=== PATIENT | female | born 1935 | race Caucasian/White ===

== ENCOUNTER → 2017-10-03 | Outpatient (CLI) | payer MEDICARE, OTHER | LOC: M.CT 10-01 11:00 | DX: M17.11 Unilateral primary osteoarthritis, right knee (principal); Z96.651 Presence of right artificial knee joint ==

== ENCOUNTER 2019-03-14 13:35 | Emergency (ER) | payer MEDICARE, OTHER ==
[~2019-03-14] VITALS: Ht 157.5 cm; Wt 88.5 kg
[2019-03-14] MEDS ORDERED: CHLORTHALIDONE25 MG PO (13:44)
[2019-03-14] MEDS ORDERED: PROZAC20 MG PO (13:45)
[2019-03-14] MEDS ORDERED: KLOR-CON 1010 MEQ PO (13:45)
[2019-03-14] MEDS ORDERED: NORVASC5 M1 PO (13:45)
[2019-03-14] MEDS ORDERED: TRAZODONE HCL50 MG PO (13:45)
[2019-03-14] MEDS ORDERED: PROBIOTIC1 EAC4 PO (13:46)
[2019-03-14] MEDS ORDERED: UNICOMPLEX M TA1 TA1 PO (13:46)
[2019-03-14] MEDS ORDERED: OMEGA-31000 M1 PO (13:46)
[2019-03-14] MEDS ORDERED: TYLENOL325 MG PO (13:46)
[2019-03-14] MEDS ORDERED: TRAMADOL 50 MG50 MG PO (13:46)
[2019-03-14] MEDS ORDERED: NORCO 5-325 TA1 EAC1 PO (14:48)
[2019-03-14 15:13] VITALS: BP 125/70
== END 2019-03-14 15:13 | disposition home or self-care (01) ==
LOC: M.ERS 13:35
DX: M25.562 Pain in left knee (principal); I10 Essential (primary) hypertension; G47.00 Insomnia, unspecified; F41.9 Anxiety disorder, unspecified; F32.9 Major depressive disorder, single episode, unspecified; Z88.0 Allergy status to penicillin; Z88.8 Allergy status to other drugs, medicaments and biological substances; Z88.2 Allergy status to sulfonamides

== ENCOUNTER → 2019-05-01 | Outpatient (CLI) | payer MEDICARE, OTHER ==
[~2019-05-01] MED LIST: CHLORTHALIDONE25 MG PO; KLOR-CON 1010 MEQ PO; NORCO 5-325 TA1 EAC1 PO; NORVASC5 M1 PO; OMEGA-31000 M1 PO; PROBIOTIC1 EAC4 PO; PROZAC20 MG PO; TRAMADOL 50 MG50 MG PO; TRAZODONE HCL50 MG PO; TYLENOL325 MG PO; UNICOMPLEX M TA1 TA1 PO
== END ==
LOC: M.WC 09:46
DX: L89.312 Pressure ulcer of right buttock, stage 2 (principal); L89.322 Pressure ulcer of left buttock, stage 2; B02.9 Zoster without complications; E78.00 Pure hypercholesterolemia, unspecified; G89.29 Other chronic pain; I10 Essential (primary) hypertension; M19.90 Unspecified osteoarthritis, unspecified site; F41.9 Anxiety disorder, unspecified; Z90.710 Acquired absence of both cervix and uterus

== ENCOUNTER → 2019-05-08 | Outpatient (CLI) | payer MEDICARE, OTHER | LOC: M.WC 09:46 | DX: L89.312 Pressure ulcer of right buttock, stage 2 (principal); L89.322 Pressure ulcer of left buttock, stage 2; S31.821D Laceration without foreign body of left buttock, subsequent encounter; S31.811D Laceration without foreign body of right buttock, subsequent encounter; B02.9 Zoster without complications; E78.00 Pure hypercholesterolemia, unspecified; G89.29 Other chronic pain; I10 Essential (primary) hypertension; M19.90 Unspecified osteoarthritis, unspecified site; F41.9 Anxiety disorder, unspecified; X58.XXXD Exposure to other specified factors, subsequent encounter ==

== ENCOUNTER → 2019-05-16 | Outpatient (CLI) | payer MEDICARE, OTHER | LOC: M.WC 04:50 | DX: L89.322 Pressure ulcer of left buttock, stage 2 (principal); L89.312 Pressure ulcer of right buttock, stage 2; B02.9 Zoster without complications; E78.00 Pure hypercholesterolemia, unspecified; G89.29 Other chronic pain; I10 Essential (primary) hypertension; R54 Age-related physical debility; M19.90 Unspecified osteoarthritis, unspecified site; F41.9 Anxiety disorder, unspecified ==

== ENCOUNTER → 2019-05-22 | Outpatient (CLI) | payer MEDICARE, OTHER | LOC: M.WC 04:56 | DX: L89.312 Pressure ulcer of right buttock, stage 2 (principal); L89.322 Pressure ulcer of left buttock, stage 2; B02.9 Zoster without complications; E78.00 Pure hypercholesterolemia, unspecified; G89.29 Other chronic pain; I10 Essential (primary) hypertension; R54 Age-related physical debility; M19.90 Unspecified osteoarthritis, unspecified site; F41.9 Anxiety disorder, unspecified ==

== ENCOUNTER → 2019-06-12 | Outpatient (CLI) | payer MEDICARE, OTHER | LOC: M.WC 06:04 | DX: L89.151 Pressure ulcer of sacral region, stage 1 (principal); L89.312 Pressure ulcer of right buttock, stage 2; L98.492 Non-pressure chronic ulcer of skin of other sites with fat layer exposed; E78.00 Pure hypercholesterolemia, unspecified; G89.29 Other chronic pain; I10 Essential (primary) hypertension; R54 Age-related physical debility; M19.90 Unspecified osteoarthritis, unspecified site; F41.9 Anxiety disorder, unspecified ==

== ENCOUNTER → 2019-06-19 | Outpatient (CLI) | payer MEDICARE, OTHER | LOC: M.WC 04:32 | DX: L89.322 Pressure ulcer of left buttock, stage 2 (principal); G89.29 Other chronic pain; I10 Essential (primary) hypertension; M54.9 Dorsalgia, unspecified; M19.90 Unspecified osteoarthritis, unspecified site; E78.00 Pure hypercholesterolemia, unspecified; R54 Age-related physical debility; F41.9 Anxiety disorder, unspecified ==

== ENCOUNTER → 2019-06-27 | Outpatient (CLI) | payer MEDICARE, OTHER | LOC: M.WC 06-26 10:00 | DX: L89.322 Pressure ulcer of left buttock, stage 2 (principal); L89.312 Pressure ulcer of right buttock, stage 2; E78.00 Pure hypercholesterolemia, unspecified; G89.29 Other chronic pain; I10 Essential (primary) hypertension; R54 Age-related physical debility; M19.90 Unspecified osteoarthritis, unspecified site; F41.9 Anxiety disorder, unspecified ==

== ENCOUNTER → 2019-10-09 | Outpatient (CLI) | payer MEDICARE, OTHER | LOC: M.WC 10:00 | DX: L89.321 Pressure ulcer of left buttock, stage 1 (principal); L89.311 Pressure ulcer of right buttock, stage 1; E78.00 Pure hypercholesterolemia, unspecified; G89.29 Other chronic pain; I10 Essential (primary) hypertension; M19.90 Unspecified osteoarthritis, unspecified site; F41.9 Anxiety disorder, unspecified; Z90.710 Acquired absence of both cervix and uterus ==

== ENCOUNTER → 2019-10-30 | Outpatient (CLI) | payer MEDICARE, OTHER | LOC: M.RAD 11:06 | DX: J84.10 Pulmonary fibrosis, unspecified (principal); J06.9 Acute upper respiratory infection, unspecified ==

== ENCOUNTER → 2020-01-09 | Outpatient (CLI) | payer MEDICARE, OTHER | LOC: M.WC 05:32 | DX: L89.312 Pressure ulcer of right buttock, stage 2 (principal); L89.322 Pressure ulcer of left buttock, stage 2; M19.90 Unspecified osteoarthritis, unspecified site; E78.00 Pure hypercholesterolemia, unspecified; I10 Essential (primary) hypertension; F41.9 Anxiety disorder, unspecified; Z90.710 Acquired absence of both cervix and uterus ==

== ENCOUNTER → 2020-01-16 | Outpatient (CLI) | payer MEDICARE, OTHER | LOC: M.WC 03:53 | DX: L89.312 Pressure ulcer of right buttock, stage 2 (principal); M19.90 Unspecified osteoarthritis, unspecified site; G89.29 Other chronic pain; M54.9 Dorsalgia, unspecified; I10 Essential (primary) hypertension; F41.9 Anxiety disorder, unspecified ==

== ENCOUNTER → 2020-01-23 | Outpatient (CLI) | payer MEDICARE, OTHER | LOC: M.WC 05:09 | DX: L89.312 Pressure ulcer of right buttock, stage 2 (principal); L89.322 Pressure ulcer of left buttock, stage 2; E78.00 Pure hypercholesterolemia, unspecified; I10 Essential (primary) hypertension; G89.29 Other chronic pain; M19.90 Unspecified osteoarthritis, unspecified site; F41.9 Anxiety disorder, unspecified ==

== ENCOUNTER → 2020-03-04 | Outpatient (CLI) | payer MEDICARE, OTHER | LOC: M.WC 02:25 | PROVIDERS: ATTEND Family Medicine | DX: L89.312 Pressure ulcer of right buttock, stage 2 (principal); L89.322 Pressure ulcer of left buttock, stage 2; L30.9 Dermatitis, unspecified; E78.00 Pure hypercholesterolemia, unspecified; G89.29 Other chronic pain; I10 Essential (primary) hypertension; M19.90 Unspecified osteoarthritis, unspecified site; F41.9 Anxiety disorder, unspecified; Z90.710 Acquired absence of both cervix and uterus ==

== ENCOUNTER → 2020-03-11 | Outpatient (CLI) | payer MEDICARE, OTHER | LOC: M.WC 04:21 | PROVIDERS: ATTEND Family Medicine | DX: L89.312 Pressure ulcer of right buttock, stage 2 (principal); L89.322 Pressure ulcer of left buttock, stage 2; L30.9 Dermatitis, unspecified; E78.00 Pure hypercholesterolemia, unspecified; G89.29 Other chronic pain; I10 Essential (primary) hypertension; M19.90 Unspecified osteoarthritis, unspecified site; F41.9 Anxiety disorder, unspecified ==

== ENCOUNTER → 2020-03-25 | Outpatient (CLI) | payer MEDICARE, OTHER | LOC: M.WC 03-18 10:00 | PROVIDERS: ATTEND Family Medicine | DX: L89.312 Pressure ulcer of right buttock, stage 2 (principal); L89.322 Pressure ulcer of left buttock, stage 2; E78.00 Pure hypercholesterolemia, unspecified; G89.29 Other chronic pain; I10 Essential (primary) hypertension; M19.90 Unspecified osteoarthritis, unspecified site; F41.9 Anxiety disorder, unspecified ==

== ENCOUNTER 2020-05-11 22:34 | Inpatient (IN) | payer MEDICARE, OTHER ==
[~2020-05-11] VITALS: Ht 157.5 cm; Wt 86.2 kg
--- NOTE | ~2020-05-11 | CON ---
[address] [address] CONSULTATION Name: ISMA PATNeelam Bill Room: [address] IN [facility].#: [id number] Admission: 05/12/20 Attend Phys: Annie Liao MD Discharge: Date of : 37 Report #: [id number] THIS REPORT FOR: //name// cc: Marycarmen Ortiz MD, Lin W. MD ~ THIS REPORT FOR: //name// CC: Annie Ortiz DATE OF SERVICE: 05/12/2020 HISTORY OF PRESENT ILLNESS: This is an 84-year-old female patient who was evaluated by me for multiple episodes of falling down. The history is not very clear. The patient falls down. She says she thinks something is coming on to her. She feels lightheaded and then she falls down. She thinks she may be out for a few seconds and then she becomes better. She also appeared to have some retropulsion. She shakes, she does not know why she is shaking. She was tried on some medications and she does not know the name of the medication. I do not see anything she is on for tremor. REVIEW OF SYSTEMS: A 14-point review of system was carried out. She is feeling depressed, she said 2 of her and she has trouble with the back. She has a replaced knee. She has a history of anxiety and insomnia. That was a relevant 14-point review of system. PAST MEDICAL HISTORY: Positive for falls. FAMILY HISTORY: Positive for possible tremor. SOCIAL HISTORY: She says she lives by herself and she is feeling depressed. PHYSICAL EXAMINATION: Indicate she is alert. She is responsive. She can tell me what month, what day, and what year it is. She knows the name of the president. Her speech looks intact. Cranial nerve examination 2-12 looks unremarkable. Strength, looks relatively preserved in all 4 extremities. Her position sense looks intact. Reflexes are somewhat diminished, but generalized fashion. The patient is emotional and cries easily. She does txieib-ib-cjbv and oyja-xr-sifm really well. I did not make her walk. We will ask physical therapy to ambulate it, this is because of her propensity to fall. Pulses are somewhat difficult to feel. She is moderately obese. Her cardiac and respiratory examinations appear unremarkable. Blood pressure is 177/57, respirations 17, pulse is 70, temperature is 97.6, blood pressure is 177/57, respirations 17, pulse is 70, temperature is 97.6. LABORATORY DATA: White count is somewhat up at 12.4. WBC in the urine is [facility] [address] [place] [address] CONSULTATION Name: ISMA PATNeelam Bill Room: [address] IN [facility]#: [id number] Admission: 05/12/20 Attend Phys: Annie Liao MD Discharge: Date of : 37 Report #: [id number] normal, white count is somewhat high also at 12.4. She does have some tremor, but the tremor does not look typical for Parkinson disease, but I cannot rule it out. IMPRESSION: Pretty difficult to form in this patient. She does appear to be obviously depressed and her memory according to her is poor, although she does fairly well on my memory examination. I think we should work her up. We will get an MRI of the brain and EEG because she does look like passes out, we will see what physical therapy assessment shows about her ambulation and we may give her a trial with Parkinson medication because she does appear to have some Parkinson feature. All of it was discussed with the patient and she is agreeable with this plan. Thank you very much for this referral. By: 1523 [id number] Mao MD /nt
[2020-05-11 22:36] VITALS: BP 125/65
[2020-05-11 23:01] LABS: ABSOLUTE BASOPHILS 0.1 thou/uL (0.0-0.2); ABSOLUTE EOSINOPHILS 0.2 thou/uL (0.0-0.7); ABSOLUTE NEUTROPHILS 9.1 thou/uL (1.6-8.1); BASOPHILS 0.7 %; EOSINOPHILS 1.9 %; HEMATOCRIT 40.7 % (37.0-47.0); HEMOGLOBIN 14.1 gm/dL (12.0-15.0); LYMPHOCYTES 16.4 %; MCH 31.8 pg (26.0-34.0); MCHC 34.7 g/dL (28.0-37.0); MCV 91.6 fL (80.0-100.0); MONOCYTES 7.7 %; MPV 10.2 fl. (7.2-11.1); NUCLEATED RBCS 0 /100WBC; PLATELET COUNT* 161 thou/uL (150-400); POLYS 73.3 %; RBC 4.44 mil/uL (4.20-5.00); RDW-CV 13.3 % (10.5-14.5); WBC 12.4 thou/uL (4.0-11.0)
[2020-05-11 23:12] LABS: CALCIUM 8.8 mg/dL (8.5-10.1); CREATININE 1.1 mg/dL (0.6-1.3); POTASSIUM 3.5 mmol/L (3.5-5.1)
[2020-05-11 23:13] LABS: PROTIME 10.3 Seconds (9.20-11.50)
[2020-05-11 23:22] LABS: ALBUMIN 4.2 g/dL (3.4-5.0); MAGNESIUM 2.1 mg/dL (1.8-2.4); TOTAL BILIRUBIN 0.7 mg/dL (<0.1-1.0); TOTAL PROTEIN 7.1 g/dL (6.4-8.2)
[2020-05-12 00:19] LABS: URINE BILIRUBIN NEGATIVE (Negative); URINE BLOOD 1+ (Negative); URINE CLARITY CLEAR; URINE COLOR YELLOW; URINE GLUCOSE-RANDOM NEGATIVE (Negative); URINE KETONES TRACE (Negative); URINE LEUKOCYTES-REFLEX NEGATIVE (Negative); URINE NITRITE-REFLEX NEGATIVE (Negative); URINE PROTEIN NEGATIVE (Negative); URINE UROBILINOGEN 0.2 E.U./dl (0.2-1.0)
[2020-05-12 00:25] LABS: BACTERIA-REFLEX 1-9 Few /HPF (None Seen); CASTS None Seen /LPF (None Seen); CRYSTALS None Seen /LPF (None Seen); SQUAMOUS 0-3 Few /LPF (0-3); URINE RBC 0-2 Rare /HPF (0-2); URINE WBC-REFLEX 0-5 Rare /HPF (0-5)
[2020-05-12 01:40] VITALS: BP 123/60
[2020-05-12 02:00] VITALS: BP 157/48
--- NOTE | 2020-05-12 07:06 | NUR ---
REPORT RECIEVED FROM ER. PT ORIENTED TO ROOM, CALL LIGHT SHOWN, FALL AGREEMENT WENT OVER, PT STATED UNDERSTANDING. ADMISSION DOCUMENTED, IV PATENT. PICTURES OF WOUNDS TAKEN. PT REPOSITIONED THROUGH NIGHT. FALL PRECAUTIONS IN PLACE. PT INCONTINENT THOUGH NIGHT.
[2020-05-12 08:00] VITALS: BP 151/50
[2020-05-12 09:34] LABS: ALBUMIN 3.8 g/dL (3.4-5.0); CALCIUM 8.2 mg/dL (8.5-10.1); POTASSIUM 3.4 mmol/L (3.5-5.1); TOTAL BILIRUBIN 0.9 mg/dL (<0.1-1.0); TOTAL PROTEIN 6.8 g/dL (6.4-8.2)
--- NOTE | 2020-05-12 09:48 | NUR ---
CM SPOKE TO THE PT TO DISCUSS HER HOME SITUATION, DISCHARGE PLANNING, AND TO INFORM OF THE ROLE OF CM. PT A&O, AND INDEPENDENT WI ADL'S. PT RESIDES ALONE IN HER INDEPENDENT LIVING APARTMENT ([facility]). PT INFORMS THAT HER SONS AND [employer] ASSIST WITH TRANSPORTATION TO APPOINTMENTS AND GROCERY SHOPPING. PT USES A WALKER FOR MOBILITY. PT IS CURRENTLY ON-SERVICE WITH [facility], AND WOULD LIKE TO RESUME SERVICE WITH THEM AT D/C. CM SPOKE TO INTAKE [facility] TO INFORM OF THE PT'S ADMISSION. [facility] INFORMS THAT THEY WILL RESUME SERVICE FOR THE PT AT D/C PENDING D/C ORDERS. PT HAS 0 HX OF SNF. CM WILL REMAIN AVAILABLE TO ASSIST AND FOLLOW NEEDED.
[2020-05-12 12:29] VITALS: BP 177/57
--- NOTE | 2020-05-12 13:36 | EKG ---
[place] [address] ELECTROCARDIOGRAM REPORT Name: TRISTAN PAT Room: [address] ADM IN [facility].#: [id number] Admission: 05/12/20 Attend Phys: Annie Liao, Discharge: Date of : 37 Date of Service: 05/11/20 2245 Report #: [id number] THIS REPORT FOR: //name// [facility] ED Test Date: 2020-05-11 Test Time: 22:45:43 Pat Name: TRISTAN RIVASY Department: Room: [facility] Gender: F Sock Examiner: DAVID : [id number] Requested By: Yusra Garcia Order Number: [id number] MD: Kiel Damico Measurements Intervals Allen Rate: 62 P: SC: QRS: 19 QRSD: 103 T: -1 QT: 416 QTc: 423 Interpretive Statements sinus rhythm Borderline repolarization abnormality No previous ECG available for comparison Electronically Signed On 05-12-2020 13:35:52 CDT by Kiel Damico [email or web address] <ELECTRONICALLY SIGNED> By: Kiel Damico MD, [facility] 05/12/20 1335 2245 2245 Kiel Damico MD, [facility] /EPI
[2020-05-12] MEDS ORDERED: LIPITOR10 MG PO (15:10)
[2020-05-12 16:09] VITALS: BP 152/63
--- NOTE | 2020-05-12 17:23 | 2DMMODE ---
[place] [address] 2 D/M-MODE ECHOCARDIOGRAM Name: PATTRISTAN Room: [address] IN [place]#: [id number] Admission: 05/12/20 Attend Phys: Annie Liao, Discharge: Date of : 37 Date of Service: 05/12/20 1723 Report #: [id number] THIS REPORT FOR: cc: Marycarmen Ortiz MD, Lin W. MD Blick, David R. MD [facility] ~ APPROVED REPORT Study performed: 05/12/2020 10:54:15 EXAM: Comprehensive 2D, Doppler, and color-flow Echocardiogram Patient Location: In-Patient Room #: [facility] Status: routine BSA: 1.87 HR: 69 bpm BP: 157/48 mmHg Rhythm: NSR Other Information Study Quality: Good Indications Syncope 2D Dimensions IVSd: 11.17 (7-11mm) LVOT Diam: 18.48 (18-24mm) LVDd: 45.74 mm PWd: 9.61 (7-11mm) Ascending Ao: 31.80 (22-36mm) LVDs: 26.60 (25-40mm) Aortic Root: 30.70 mm Volumes Left Atrial Volume (Systole) LA ESV Index: 17.00 mL/m2 Aortic Valve AoV Peak Enzo.: 1.86 m/s AO Peak Gr.: 13.90 mmHg LVOT Max P.49 mmHg AO Mean Gr.: 7.79 mmHg LVOT Mean P.11 mmHg LVOT Max V: 1.27 m/s AO V2 VTI: 41.34 cm LVOT Mean V: 0.81 m/s TRISTON (VTI): 1.92 cm2 LVOT V1 VTI: 29.54 cm AI Randall: 2.51 m/s2 [place] [address] 2 D/M-MODE ECHOCARDIOGRAM Name: TRISTAN PAT Room: [address] IN .R.#: [id number] Admission: 05/12/20 Attend Phys: Annie Liao, Discharge: Date of : 37 Date of Service: 05/12/20 1723 Report #: [id number] AI PHT: 479.85 ms Mitral Valve E/A Ratio: 0.76 MV Decel. Time: 229.99 ms MV E Max Enzo.: 0.95 m/s MV PHT: 66.70 ms MVA (PHT): 3.30 cm2 TDI E/Lateral E': 10.56 E/Medial E': 13.57 Medial E' Enzo.: 0.07 m/s Lateral E' Enzo.: 0.09 m/s Pulmonary Valve PV Peak Enzo.: 1.12 m/s PV Peak Gr.: 4.98 mmHg Left Ventricle The left ventricle is normal size. There is normal LV segmental wall motion. There is normal left ventricular wall thickness. Left ventricular systolic function is normal. The left ventricular ejection fraction is within the normal range. LVEF is 60-65%. Grade I - abnormal relaxation pattern. Right Ventricle The right ventricle is normal size. The right ventricular systolic function is normal. Atria The left atrium size is normal. The right atrium size is normal. Aortic Valve Mild aortic valve sclerosis. Mild aortic regurgitation. There is no aortic valvular stenosis. Mitral Valve The mitral valve is normal in structure. There is no mitral valve regurgitation noted. No evidence of mitral valve stenosis. Tricuspid Valve The tricuspid valve is normal in structure. There is no tricuspid valve regurgitation noted. Pulmonic Valve The pulmonary valve is normal in structure. [place] [address] 2 D/M-MODE ECHOCARDIOGRAM Name: PHUC PATJANEL Bill Room: [address] IN [facility]#: [id number] Admission: 05/12/20 Attend Phys: Annie Liao, Discharge: Date of : 37 Date of Service: 05/12/20 1723 Report #: [id number] valvular regurgitation. Great Vessels The aortic root is normal in size. IVC is normal in size and collapses >50% with inspiration. Pericardium There is no pericardial effusion. <Conclusion> LVEF is 60-65%. Mild aortic regurgitation. <ELECTRONICALLY SIGNED> By: Kiel Damico MD, [facility] 05/12/201722 22 22 Kiel Damico MD, [facility] /INF
--- NOTE | 2020-05-12 19:35 | NUR ---
ASSUMED PT CARE AT 0730, PT HAD C/O PAIN "ALL OVER" TREATED W/ PRN TYLENOL W/ SOME RELIEF. PT AOX4 INITIALLY BUT SOMETIMES FORGETFUL. PT WORKED W/ NEURO TODAY, MRI OF HEAD ORDERED BUT PT STATES TOO ANXIOUS W/OUT MEDS TO COMPLETE, ONETIME DOSE OF ATIVAN ORDERED AND GIVEN TO PT. PT COMPLETED MRI BUT UPON COMING BACK TO UNIT THIS AFTERNOON, PT ONLY ORIENTED TO SELF, VERY CONFUSED AND AGITATED AND STATES SHE "WANTS TO LEAVE NOW". PT KEEPS TRYING TO GET UP, FALL PRECAUTIONS IN PLACE AND PT CONTINUOUSLY REDIRECTED TO STAY IN BED. WE CALLED PT SON AND HE WAS UPDATED ON POC AND SITUATION, ENCOURAGED PT TO WORK W/ NURSING STAFF. PT SKEPTICAL OF POC AND SITUATION AND NOT WANTING TO COOPERATE W/ NURSING STAFF. 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 AM ASSESSMENT CHARTED, MEDS PER NOV, HOURLY ROUNDING OBSERVED, FALL PRECAUTIONS IN PLACE, CALL LIGHT W/IN REACH.
[2020-05-12 20:30] VITALS: BP 162/55
[2020-05-13] VITALS: BP 125/40
[2020-05-13 02:06] LABS: GLYCOHEMOGLOBIN (HGB A1C) 5.8 % (4.8-5.6)
[2020-05-13 04:00] VITALS: BP 148/58
[2020-05-13 04:34] LABS: ABSOLUTE BASOPHILS 0.1 thou/uL (0.0-0.2); ABSOLUTE EOSINOPHILS 0.1 thou/uL (0.0-0.7); ABSOLUTE LYMPHOCYTES 2.7 thou/uL (0.8-5.3); ABSOLUTE MONOCYTES 0.6 thou/uL (0.0-1.2); ABSOLUTE NEUTROPHILS 5.5 thou/uL (1.6-8.1); BASOPHILS 0.6 %; EOSINOPHILS 1.5 %; HEMOGLOBIN 12.6 gm/dL (12.0-15.0); LYMPHOCYTES 30.1 %; MCH 31.5 pg (26.0-34.0); MCHC 34.1 g/dL (28.0-37.0); MCV 92.3 fL (80.0-100.0); MONOCYTES 6.7 %; MPV 10.4 fl. (7.2-11.1); NUCLEATED RBCS 0 /100WBC; PLATELET COUNT* 142 thou/uL (150-400); POLYS 61.1 %; RDW-CV 13.3 % (10.5-14.5)
[2020-05-13 04:43] LABS: CALCIUM 8.7 mg/dL (8.5-10.1)
[2020-05-13 04:46] LABS: POTASSIUM 2.9 mmol/L (3.5-5.1)
[2020-05-13 04:50] LABS: CHOLESTEROL 130 mg/dL (<200); HDL CHOLESTEROL 57 mg/dL (>40); LDL CHOLESTEROL 55 mg/dL (<100); SERUM ASSESSMENT Clear; TC:HDL 2.3 Ratio (Not establshd); TRIGLYCERIDE 91 mg/dL (<150); VLDL 18 mg/dL (<40)
--- NOTE | 2020-05-13 05:56 | NUR ---
PT SLEPT MOST OF SHIFT. ASSESSMENT DOCUMENTED. MEDS GIVEN PER E-MAR. IV PATENT. NO REPORTS OF PAIN. PT VERY CONFUSED AND FORGETFUL AT BEGINING OF SHIFT, BUT MORE ORIENTED THROUGHOUT THE NIGHT. DRESSINGS REMAINED C/D/I. FALL PRECAUTIONS IN PLACE.
[2020-05-13 08:00] VITALS: BP 182/96
--- NOTE | 2020-05-13 09:39 | NUR ---
Nutrition: Pt admitted with syncope. H/o HTN, shingles, pressure ulcer. Seen for ulcer on buttocks. Wt: 190#. Regular diet. Albumin 3.8, K+ 2.9. Pt is confused, forgetful. RD will order Marcello for wound healing. GOALS: >60% of meals and supplements consumed. Mild risk.
[2020-05-13 12:00] VITALS: BP 153/37
--- NOTE | 2020-05-13 12:10 | NUR ---
ASSUMED PT CARE AT 0730, PT ALERT AND ORIENTED TO SELF BUT CONFUSED AND AGITATED AND REFUSING CARE, STATES SHE "WANTS TO GO HOME" AND IS CONVINCED THAT SHE IS NOT AT [facility]. 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 PT FAMILY CALLED BUT ARE QUARANTINED AT HOME DUE TO POSITIVE COVID CASES IN THEIR FAMILY. PT GOAL IS TO WORK W/ DR AND FIGURE OUT IF DC IS AN OPTION FOR HER SINCE SHE IS CONFUSED AND DOESN'T HAVE FAMILY TO PICK HER UP AND TO WORK W/ NURSES ON POC. AM ASSESSMENT CHARTED, MEDS PER MAR, HOURLY ROUNDING OBSERVED, FALL PRECAUTIONS IN PLACE, PT REMINDED FREQUENTLY TO CALL OUT WHEN SHE NEEDS TO GET UP, KEEPS FORGETTING, CALL LIGHT W/IN REACH, WILL CONTINUE POC.
[2020-05-13 17:55] VITALS: BP 153/37
--- NOTE | 2020-05-13 18:41 | NUR ---
DC ORDERS RECEIVED. DC INSTRUCTIONS AND F/U APPTS GIVEN TO PT. PT ENDED UP AGREEING TO WORK W/ PT AND HAVE A PSYCH CONSULT, SEE NOTES. PT WAS DEEMED COMPETANT TO MAKE OWN DECISIONS, I EXPLAINED THE REPERCUSSIONS OF NOT REPLACING HER POTASSIUM, PT AGREED TO TAKE ONE MORE DOSE BEFORE DC. PT STATES SHE WILL TAKE THE REST OF HER OWN MEDS AT HOME. STRONGLY ENCOURAGED PT TO F/U W/ HER PCP W/IN THE NEXT WEEK TO RECHECK HER LABS AND VITALS. ENCOURAGED PT TO BE SAFE AT HOME AND ALWAYS USE WALKER AND GET UP SLOWLY. IV AND AUDIOVISUAL LIBRARIAN REMOVED. PT DC'D BY WC W/ NURSING STAFF TO FRIEND'S PERSONAL VEHICLE AT APPROX 1840.
--- NOTE | 2020-05-15 16:18 | NUR ---
AFTER CHART REVIEW AND PER RN, NO SWALLOW DEFICITS NOTED. FURTHER CLINICAL EVALUATION NOT WARRANTED AT THIS TIME.
== END 2020-05-13 18:40 | disposition home or self-care (01) | DRG 640 ==
LOC: M.ERS 22:34 → M.TBA-ER 05-12 01:06 → M.2W 05-12 01:48
PROVIDERS: Emergency Medicine; Internal Medicine; ADMIT Internal Medicine; ATTEND Internal Medicine
PROC: 0HQDXZZ Repair Right Lower Arm Skin, External Approach (ICD-10-PCS; principal; 2020-05-12)
DX: E86.0 Dehydration (principal); G93.41 Metabolic encephalopathy; T67.1XXA Heat syncope, initial encounter; Z20.828 Contact with and (suspected) exposure to other viral communicable diseases; I10 Essential (primary) hypertension; G47.00 Insomnia, unspecified; F32.9 Major depressive disorder, single episode, unspecified; F41.9 Anxiety disorder, unspecified; M19.90 Unspecified osteoarthritis, unspecified site; W18.39XA Other fall on same level, initial encounter; Y93.01 Activity, walking, marching and hiking; Y92.098 Other place in other non-institutional residence as the place of occurrence of the external cause; Z88.0 Allergy status to penicillin; Z88.2 Allergy status to sulfonamides; Z88.8 Allergy status to other drugs, medicaments and biological substances; Y99.8 Other external cause status